=== PATIENT | male | born 1975 | race Caucasian/White ===

== ENCOUNTER 2019-01-03 02:23 | Emergency (ER) | payer MEDICAID ==
[~2019-01-03] VITALS: Ht 170.2 cm; Wt 77.0 kg
[2019-01-03 02:31] VITALS: Ht 170.2 cm; Wt 77.0 kg
[2019-01-03] MEDS ORDERED: SOD CHLORIDE 0.9% 1,000 ML IV STA (06:30)
[2019-01-03] MEDS ORDERED: KETOROLAC 15 MG INJ IV STA (06:30)
--- NOTE | 2019-01-03 06:31 | ERD ---
ER Documentation Chief Complaint Chief Complaint LEFT SIDED CHEST PAIN, "SHARP STABBING" X 2 HOURS HPI This is a 43-year-old man complaining of chest pain which she describes as sharp and stabbing, nonradiating and nonexertional beginning yesterday and this morning as well. He has had similar episodes in the past. He denies shortness of breath, no trauma, no cough, no headache or blurry vision, no vomiting or diarrhea. ROS All systems reviewed and are negative except as per history of present illness. Medications Home Meds Active Scripts Ibuprofen* (Motrin*) 600 Mg Tab, 600 MG PO Q8 PRN for PAIN AND/OR INFLAMMATION, #60 TAB Prov:DOMI LEMON MD 01/03/19 Allergies Allergies: Coded Allergies: No Known Allergy (Unverified , 01/03/19) PMhx/Soc History of Surgery: No Anesthesia Reaction: No Hx Neurological Disorder: No Hx Respiratory Disorders: No Hx Cardiac Disorders: No Hx Psychiatric Problems: No Hx Miscellaneous Medical Probl: No Hx Alcohol Use: Yes (Sometimes) Hx Substance Use: No Hx Tobacco Use: Yes (Quit 2004) Smoking Status: Former smoker FmHx Family History: No diabetes Physical Exam Vitals Vital Signs Date Temp Pulse Resp B/P (MAP) Pulse Ox O2 O2 Flow FiO2 Time Delivery Rate 01/03/19 94 17 146/92 100 Room Air 07:10 (110) 01/03/19 88 14 152/89 100 Room Air 06:30 (110) 01/03/19 97.5 90 20 167/92 100 Room Air 05:35 (117) 01/03/19 97.5 75 22 193/98 100 02:31 (129) Physical Exam Const: Anxious, afebrile Head: Atraumatic Eyes: Normal Conjunctiva ENT: Normal External Ears, Nose and Mouth. Neck: Full range of motion. No meningismus. Resp: Clear to auscultation bilaterally Cardio: Regular rate and rhythm, no murmurs Abd: Soft, non tender, non distended. Normal bowel sounds Skin: No petechiae or rashes Back: No midline or flank tenderness Ext: No cyanosis, or edema Neur: Awake and alert x3, no focal deficits or facial asymmetry Psych: Appears anxious Result Diagram: 01/03/1952901/03/19529 Results 24 hrs Laboratory Tests Test 01/03/19 05:30 White Blood Count 5.4 10^3/ul Red Blood Count 5.06 10^6/ul Hemoglobin 15.1 g/dl Hematocrit 44.4 % Mean Corpuscular Volume 87.7 fl Mean Corpuscular Hemoglobin 29.8 pg Mean Corpuscular Hemoglobin Concent 34.0 g/dl Red Cell Distribution Width 12.1 % Platelet Count 164 10^3/UL Mean Platelet Volume 12.1 fl Immature Granulocytes % 0.400 % Neutrophils % 62.7 % Lymphocytes % 28.0 % Monocytes % 8.1 % Eosinophils % 0.2 % Basophils % 0.6 % Nucleated Red Blood Cells % 0.0 /100WBC Immature Granulocytes # 0.020 10^3/ul Neutrophils # 3.4 10^3/ul Lymphocytes # 1.5 10^3/ul Monocytes # 0.4 10^3/ul Eosinophils # 0.0 10^3/ul Basophils # 0.0 10^3/ul Nucleated Red Blood Cells # 0.0 10^3/ul Sodium Level 138 mmol/L Potassium Level 4.0 mmol/L Chloride Level 94 mmol/L Carbon Dioxide Level 27 mmol/L Anion Gap 17 Blood Urea Nitrogen 15 mg/dl Creatinine 0.64 mg/dl Est Glomerular Filtrat Rate mL/min > 60 mL/min Glucose Level 348 mg/dl Calcium Level 10.0 mg/dl Troponin I < 0.012 ng/ml Current Medications Medications Dose Sig/Jessenia Start Time Status Last (Trade) Ordered Route PRN Stop Time Admin Dose Reason Admin Sodium 1,000 ml @ Q1H STAT 01/03/19 DC 01/03/19 Chloride 1,000 mls/hr IV 06:30 06:44 01/03/19 07:11 Ketorolac 15 mg ONCE STAT 01/03/19 DC 01/03/19 Tromethamine IV 06:30 06:44 (Toradol) 01/03/19 06:41 Procedures/MDM IV line was established patient was placed on property assessment monitor rhythm strip revealed a sinus rhythm at about 80 bpm with upright P and T waves. Patient was afebrile One AP view of the chest performed, read by me reveals no acute infiltrates, normal mediastinum, sharp costophrenic and cardiac borders, no air under the diaphragm. Otherwise unremarkable chest x-ray. EKG performed, read by me revealed a normal sinus rhythm at 79 bpm, normal axis, right ventricular conduction delay, no concerning ST elevations or depressions noted. I administered 1 L normal saline IV and Toradol 50 mg IV x1. CBC and electrolytes were normal although blood sugar elevated at 348, troponin negative. Differential diagnoses considered, included but not limited to acute coronary syndrome, pulmonary embolism, aortic dissection, abdominal aortic aneurysm, sepsis, stroke, meningitis, encephalitis, pneumonia, appendicitis, cholecystitis, bowel obstruction, pyelonephritis, nephrolithiasis, cystitis, as well as metabolic, hematologic, and electrolyte abnormalities. As well as abscess, cellulitis, fractures, and dislocations. Patient feels much better at this time, and vital signs are normal, symptoms have improved. I did give strict instructions to return to the ED if symptoms continue or worsen, patient will otherwise follow-up with primary care physician. Patient understood instructions and agreed to plan. Disclaimer: Inadvertent spelling and grammatical errors are likely due to EHR/dictation software use and do not reflect on the overall quality of patient care. Also, please note that the electronic time recorded on this note does not necessarily reflect the actual time of the patient encounter. Departure Diagnosis: Primary Impression: Chest pain Chest pain type: unspecified Qualified Codes: R07.9 - Chest pain, unspecified Additional Impressions: Acute anxiety Hyperglycemia Condition: Good DOMI LEMON MD Jan 03, 2019 06:31
[2019-01-03] MEDS ORDERED: IBUP-1542 PO (06:40)
[2019-01-03 07:10] VITALS: BP 146/92; PULSE 94; RESP 17
== END 2019-01-03 07:11 | disposition home or self-care (01) ==
LOC: E/R 02:23
DX: F41.9 Anxiety disorder, unspecified (principal); R73.9 Hyperglycemia, unspecified; Z87.891 Personal history of nicotine dependence
CPT/HCPCS: 36415; 71045; 80048; 84484; 85025; 93005; 96374; J1885; J7030; Z7502